=== PATIENT | female | born 1980 | race Caucasian/White ===

== ENCOUNTER 2024-02-24 13:35 | Inpatient (IN) | payer BC ==
[2024-02-24 15:20] LABS: INR 1.07 (0.83-1.09); PROTHROMBIN TIME (PATIENT) 12.2 SEC (9.7-13.0)
[2024-02-24] MEDS ORDERED: METOCLOPRAMIDE HCL INJECTION 10 MG/2 ML VIAL ONE ×2 (15:20→23:57)
[2024-02-24] MEDS ORDERED: ACETAMINOPHEN INJECTION 100 ML IVPB ONE (15:20)
[2024-02-24 15:23] LABS: ACTIVATED PTT 38.8 SECONDS (25.2-36.5)
[2024-02-24 15:24] LABS: HEMATOCRIT 44.6 % (32.4-45.2); HEMOGLOBIN 14.1 G/dL (10.7-15.3); MCH 27.9 pg (25.7-33.7); MCHC 31.5 g/dl (32.0-36.0); MEAN CELL VOLUME 88.4 fl (80-96); MEAN PLT VOLUME 10.3 fl (7.5-11.1); PLATELET COUNT 239.2 10^3/uL (134-434); RBC 5.05 10^6/uL (3.60-5.2); RDW 15.9 % (11.6-15.6); WHITE BLOOD COUNT 20.7 10^3/uL (4.0-10.8)
[2024-02-24 15:29] LABS: ALK PHOS 334 U/L (45-117); ANION GAP 12 mmol/L (4-13); BILIRUBIN,TOTAL 0.6 mg/dl (0.2-1); CALCIUM 9.2 mg/dl (8.5-10.1); CHLORIDE 98 mmol/L (98-107); CO2 23 mmol/L (21-32); CREATININE 0.9 mg/dl (0.6-1.3); GLUCOSE,RANDOM 196 mg/dl (74-106); POTASSIUM 4.1 mmol/L (3.5-5.1); SGOT/AST 74 U/L (15-37); SGPT/ALT 134 U/L (7-52); SODIUM 133 mmol/L (136-145); TOT PROT 6.4 g/dl (6.4-8.2)
[2024-02-24] MEDS: ACETAMINOPHEN 1000 MG/100 ML BAG IVPB ONE (15:31)
[2024-02-24] MEDS: LACTATED RINGERS SOLUTION 1000 ML INFUS.BAG IV ONE (15:31)
[2024-02-24] MEDS: METOCLOPRAMIDE HCL INJECTION 10 MG/2 ML VIAL IVPB ONE (15:31)
[2024-02-24 15:46] LABS: PLATELET ESTIMATE ADEQUATE
[2024-02-24] MEDS ORDERED: ASPIRIN 81 MG CHEWABLE TABLETS ONE (16:46)
[2024-02-24] MEDS: ASPIRIN 81 MG CHEWABLE TABLETS PO ONE (16:54)
[2024-02-24] MEDS ORDERED: PIPERACILLIN/TAZOBACTAM 4.5 GM VIAL IVPB ONE (17:11)
[2024-02-24] MEDS: PIPERACILLIN/TAZOB 4.5 GM 4.5 GM in DEXTROSE 5%-WATER 100 ML IVPB ONE (17:32)
[2024-02-24] MEDS: morphine SULFATE 4 MG/ML VIAL IVPUSH ONE (17:55)
[2024-02-24] MEDS: LACTATED RINGERS SOLUTION 1,000 ML/1,000 ML INFUS.BAG IV STA (18:21)
[2024-02-24] MEDS ORDERED: HYDROmorphone HCL/PF 1 MG/ML VIAL ONE (21:06)
[2024-02-24] MEDS: HYDROmorphone HCl 2 MG/ML VIAL IVPUSH ONE (21:23)
[2024-02-25] MEDS: METOCLOPRAMIDE HCL INJECTION 10 MG/2 ML VIAL IVPB ONE
[2024-02-25] MEDS ORDERED: PIPERACILLIN/TAZOBACTAM 4.5 GM VIAL IVPB ONE (00:39)
[2024-02-25] MEDS: PIPERACILLIN/TAZOB 4.5 GM 4.5 GM in DEXTROSE 5%-WATER 100 ML IVPB ONE (00:46)
[2024-02-25] MEDS ORDERED: METOCLOPRAMIDE HCL INJECTION 10 MG/2 ML VIAL IVPUSH PRN (02:36)
[2024-02-25] MEDS: SODIUM CHLORIDE 1,000 ML IV SCH ×3 (03:00→19:31)
[2024-02-25] MEDS ORDERED: ACETAMINOPHEN 1000 MG/100 ML BAG IVPB PRN (03:03)
[2024-02-25] MEDS ORDERED: morphine CARPU-JECT 2 MG/1 ML DISP.SYRIN IVPUSH PRN (03:03)
[2024-02-25] MEDS: LITHIUM CARBONATE 300 MG CAPSULE PO SCH ×2 (03:12→22:56)
[2024-02-25] MEDS: ONDANSETRON 4 MG/2 ML VIAL IVPUSH ONE ×2 (03:12→14:16)
[2024-02-25] MEDS ORDERED: morphine SULFATE 4 MG/ML VIAL IVPUSH PRN (03:30)
[2024-02-25 03:51] VITALS: BMI 23.0
[2024-02-25] MEDS ORDERED: ACETAMINOPHEN INJECTION 100 ML IVPB ONE ×2 (06:08→14:56)
[2024-02-25] MEDS: ACETAMINOPHEN 1000 MG/100 ML BAG IVPB ONE (06:10)
[2024-02-25] MEDS: LEVOTHYROXINE NA 112 MCG TABLET (FP) PO SCH (07:10)
[2024-02-25 07:52] LABS: INR 1.18 (0.83-1.09); PROTHROMBIN TIME (PATIENT) 13.3 SEC (9.7-13.0)
[2024-02-25 07:55] LABS: ACTIVATED PTT 32.9 SECONDS (25.2-36.5)
[2024-02-25 08:08] LABS: POTASSIUM 4.3 mmol/L (3.5-5.1)
[2024-02-25 08:12] LABS: CALCIUM 8.4 mg/dL (8.5-10.1)
[2024-02-25 08:13] LABS: ALBUMIN 2.7 g/dl (3.4-5.0); BLOOD UREA NITROGEN 9.1 mg/dL (7-18)
[2024-02-25 08:16] LABS: CREATININE 0.6 mg/dL (0.55-1.3); PHOSPHOROUS 3.2 mg/dL (2.5-4.9)
[2024-02-25 08:17] LABS: TOT PROT 5.4 g/dl (6.4-8.2)
[2024-02-25 08:18] LABS: BILIRUBIN,TOTAL 0.5 mg/dL (0.2-1)
[2024-02-25 08:19] LABS: HEMATOCRIT 37.7 % (32.4-45.2); HEMOGLOBIN 12.4 GM/dL (10.7-15.3); MCH 28.1 pg (25.7-33.7); MCHC 32.8 g/dl (32.0-36.0); MEAN CELL VOLUME 85.6 fl (80-96); MEAN PLT VOLUME 10.4 fl (7.5-11.1); PLATELET COUNT 251 10^3/uL (134-434); RBC 4.41 M/mm3 (3.60-5.2); RDW 15.8 % (11.6-15.6); WHITE BLOOD COUNT 20.9 K/mm3 (4.0-10.0)
[2024-02-25 09:33] LABS: ANISOCYTOSIS 0; MACROCYTOSIS 0
[2024-02-25] MEDS ORDERED: ASENAPINE 5 MG TAB SL SCH (10:00)
[2024-02-25] MEDS ORDERED: PIPERACILLIN/TAZOB 3.375 GM 3.375 GM in DEXTROSE 5%-WATER - 50 ML IVPB SCH ×5 (10:00→20:00)
[2024-02-25] MEDS: QUEtiapine FUMARATE 25 MG TABLET PO ONE ×2 (10:44→23:40)
[2024-02-25] MEDS: LIOTHYRONINE SODIUM 5 MCG TABLET PO SCH (11:07)
[2024-02-25] MEDS: HYDROmorphone HCl 2 MG/ML VIAL IVPUSH PRN (11:08)
[2024-02-25] MEDS: PIPERACILLIN/TAZOB 3.375 GM 3.375 GM in DEXTROSE 5%-WATER - 50 ML IVPB SCH ×3 (11:11→19:32)
[2024-02-25] MEDS: SERTRALINE HCL 50 MG TABLET (FP) PO SCH (11:12)
[2024-02-25] MEDS ORDERED: HEPARIN NA (PORCINE) 5,000 UNITS/ML 1ML VIAL ONE (11:27)
[2024-02-25] MEDS ORDERED: BUPIVACAINE HCL/PF 0.25% (2.5MG/ML) 10 ML VIAL ONE (11:27)
[2024-02-25] MEDS ORDERED: FENTANYL CITRATE/PF 50 MCG/ML VIAL ONE ×4 (11:39→14:53)
[2024-02-25] MEDS ORDERED: SUCCINYLCHOLINE CHLORIDE 200 MG/10 ML SYRINGE ONE (11:40)
[2024-02-25] MEDS ORDERED: MIDAZOLAM HCL 2 MG/2 ML SINGLE DOSE VIAL ONE (11:40)
[2024-02-25] MEDS ORDERED: PROPOFOL 20 ML ONE (11:40)
[2024-02-25] MEDS ORDERED: cefOXitin SODIUM 2 GM VIAL (RESTRICTED TO ID) IVPB ONE (11:56)
[2024-02-25] MEDS: BUPIVACAINE HCL/PF 2.5 MG/ML - 30 ML VIAL IJ ONE ×2 (12:36)
[2024-02-25] MEDS ORDERED: ROCURONIUM BROMIDE 50 MG/5 ML SYRINGE ONE (12:40)
[2024-02-25] MEDS ORDERED: NEOSTIGMINE METHYLSULFATE 0.5 MG/1 ML - 10 ML MDV ONE (13:40)
[2024-02-25] MEDS ORDERED: GLYCOPYRROLATE 0.2 MG/1 ML VIAL ONE (13:40)
[2024-02-25] MEDS ORDERED: ONDANSETRON 4 MG/2 ML VIAL ONE (14:16)
[2024-02-25] MEDS ORDERED: KETOROLAC TROMETHAMINE 30 MG/1 ML VIAL ONE (14:33)
[2024-02-25] MEDS: KETOROLAC TROMETHAMINE 30 MG/1 ML VIAL IVPUSH PRN (14:35)
[2024-02-25] MEDS: ACETAMINOPHEN 1000 MG/100 ML BAG IVPB SCH (15:00)
[2024-02-25] MEDS ORDERED: ACETAMINOPHEN 1000 MG/100 ML BAG IVPB SCH (15:30)
[2024-02-25 16:08] LABS: POTASSIUM 4.3 mmol/L (3.5-5.1)
[2024-02-25 16:10] LABS: BLOOD UREA NITROGEN 9.4 mg/dL (7-18); CALCIUM 8.3 mg/dL (8.5-10.1)
[2024-02-25 16:13] LABS: CREATININE 0.6 mg/dL (0.55-1.3)
[2024-02-25] MEDS: oxyCODONE HCL 5 MG TABLET PO PRN (16:27)
[2024-02-25] MEDS ORDERED: TRIMETHOBENZAMIDE HCL 200MG/2ML INJ IM PRN (17:02)
[2024-02-25 18:32] LABS: EPI CELLS >36 /uL (0-25.1); HYALINE CASTS 9 /uL (0-3.1); URINE APPEARANCE CLOUDY; URINE BACTERIA 659 /uL (0-1359); URINE BILIRUBIN NEGATIVE (NEGATIVE); URINE COLOR DK YELLOW; URINE GLUCOSE (UA) 2+ (NEGATIVE); URINE KETONE 3+ (NEGATIVE); URINE LEUK ESTERASE NEGATIVE (NEGATIVE); URINE NITRITE NEGATIVE (NEGATIVE); URINE PROTEIN 2+ (NEGATIVE)
[2024-02-25] MEDS: BENZOCAINE/MENTH/CETYLPYRD CL 1 EACH LOZENGE MM ONE (18:46)
[2024-02-25] MEDS: BENZOCAINE/MENTHOL (CHLORASEPTIC ) LOZENGE MM ONE (18:48)
[2024-02-25 19:11] LABS: URINE RBC 43.6 /uL (0-23.9); URINE WBC 414.4 /uL (0-25.8); YEAST PRESENT (NEGATIVE)
[2024-02-25] MEDS: ASENAPINE 5 MG TAB SL SCH (19:32)
[2024-02-25] MEDS: LACTATED RINGERS SOLUTION 1,000 ML IV SCH (19:32)
[2024-02-25] MEDS: QUEtiapine FUMARATE 25 MG TABLET PO SCH (21:22)
[2024-02-25] MEDS ORDERED: QUEtiapine FUMARATE 25 MG TABLET PO SCH ×2 (22:00)
[2024-02-25] MEDS ORDERED: LITHIUM CARBONATE 300 MG CAPSULE PO SCH (22:00)
[2024-02-26] MEDS: LEVOTHYROXINE NA 112 MCG TABLET (FP) PO SCH (06:59)
[2024-02-26] MEDS ORDERED: LEVOTHYROXINE NA 112 MCG TABLET (FP) PO SCH (07:00)
[2024-02-26 09:46] LABS: HEMATOCRIT 39.1 % (32.4-45.2); HEMOGLOBIN 12.5 GM/dL (10.7-15.3); MCH 27.8 pg (25.7-33.7); MEAN PLT VOLUME 9.7 fl (7.5-11.1); PLATELET COUNT 317 10^3/uL (134-434); RBC 4.49 M/mm3 (3.60-5.2); RDW 15.7 % (11.6-15.6); WHITE BLOOD COUNT 22.1 K/mm3 (4.0-10.0)
[2024-02-26] MEDS: SERTRALINE HCL 50 MG TABLET (FP) PO SCH (09:57)
[2024-02-26] MEDS: LIOTHYRONINE SODIUM 5 MCG TABLET PO SCH (09:57)
[2024-02-26] MEDS: SIMETHICONE 80 MG TAB.CHEW (FP) PO PRN (09:57)
[2024-02-26] MEDS ORDERED: LIOTHYRONINE SODIUM 5 MCG TABLET PO SCH (10:00)
[2024-02-26] MEDS ORDERED: SERTRALINE HCL 50 MG TABLET (FP) PO SCH (10:00)
[2024-02-26] MEDS: ACETAMINOPHEN 500 MG TABLET (FP) PO SCH ×2 (10:00→21:12)
[2024-02-26] MEDS ORDERED: ASENAPINE 5 MG TAB SL SCH (10:00)
[2024-02-26 10:26] LABS: POTASSIUM 4.6 mmol/L (3.5-5.1)
[2024-02-26 10:28] LABS: CALCIUM 8.3 mg/dL (8.5-10.1)
[2024-02-26 10:32] LABS: CREATININE 0.7 mg/dL (0.55-1.3); PHOSPHOROUS 2.4 mg/dL (2.5-4.9)
[2024-02-26 10:55] LABS: ANISOCYTOSIS 1+; MACROCYTOSIS 0
[2024-02-26] MEDS ORDERED: ACETAMINOPHEN 500 MG TABLET (FP) PO PRN (12:16)
[2024-02-26] MEDS: ASENAPINE 5 MG TAB SL SCH (14:16)
[2024-02-26] MEDS: MAG HYDROX/AL HYDROX/SIMETH 30 ML UNIT-DOSE CUP PO ONE (17:46)
[2024-02-26] MEDS ORDERED: TRIMETHOBENZAMIDE HCL 200MG/2ML INJ IM PRN (21:00)
[2024-02-26] MEDS: LITHIUM CARBONATE 300 MG CAPSULE PO SCH (21:09)
[2024-02-26] MEDS: QUEtiapine FUMARATE 25 MG TABLET PO SCH (21:09)
[2024-02-27] MEDS: ALBUTEROL SO4 0.083% IH SOL 2.5 MG/3 ML VIAL.NEB. NEB ONE (03:57)
[2024-02-27 08:01] LABS: HEMATOCRIT 40.8 % (32.4-45.2); MCH 27.7 pg (25.7-33.7); MCHC 31.9 g/dl (32.0-36.0); MEAN CELL VOLUME 86.7 fl (80-96); PLATELET COUNT 436 10^3/uL (134-434); RBC 4.71 M/mm3 (3.60-5.2); RDW 15.9 % (11.6-15.6); WHITE BLOOD COUNT 23.9 K/mm3 (4.0-10.0)
[2024-02-27 08:19] LABS: POTASSIUM 4.1 mmol/L (3.5-5.1)
[2024-02-27 08:26] LABS: ALBUMIN 2.6 g/dl (3.4-5.0); BLOOD UREA NITROGEN 5.1 mg/dL (7-18); CALCIUM 8.5 mg/dL (8.5-10.1); MAGNESIUM 2.2 mg/dL (1.8-2.4)
[2024-02-27 08:28] LABS: CREATININE 0.7 mg/dL (0.55-1.3)
[2024-02-27 08:30] LABS: TOT PROT 5.7 g/dl (6.4-8.2)
[2024-02-27 08:32] LABS: BILIRUBIN,TOTAL 0.8 mg/dL (0.2-1)
[2024-02-27] MEDS: LEVOTHYROXINE NA 112 MCG TABLET (FP) PO SCH (08:59)
[2024-02-27] MEDS: ASENAPINE 5 MG SL SCH (09:00)
[2024-02-27] MEDS: LIOTHYRONINE SODIUM 5 MCG TABLET PO SCH (09:02)
[2024-02-27 09:45] LABS: ANISOCYTOSIS 0; MACROCYTOSIS 0
[2024-02-27] MEDS ORDERED: CASPOFUNGIN ACETATE 70 MG in SODIUM CHLORIDE 250 ML IVPB ONE (12:15)
[2024-02-27] MEDS: FUROSEMIDE 40 MG/4 ML INJECTABLE VIAL IVPUSH ONE (13:10)
[2024-02-27 14:29] LABS: EPI CELLS >36 /uL (0-25.1); HYALINE CASTS 0 /uL (0-3.1); PH,URINE 7.5 (5.0-8.0); URINE APPEARANCE Error; URINE BACTERIA 8 /uL (0-1359); URINE BILIRUBIN NEGATIVE (NEGATIVE); URINE COLOR YELLOW; URINE GLUCOSE (UA) NEGATIVE (NEGATIVE); URINE KETONE 1+ (NEGATIVE); URINE LEUK ESTERASE 2+ (NEGATIVE); URINE NITRITE NEGATIVE (NEGATIVE); URINE PROTEIN NEGATIVE (NEGATIVE); URINE RBC 15 /uL (0-23.9); URINE UROBILINOGEN 0.2 mg/dL (0.2-1.0); URINE WBC 115 /uL (0-25.8)
[2024-02-27 15:48] LABS: METHADONE, UR NEGATIVE (NEGATIVE)
[2024-02-27 15:53] LABS: OPIATES, URI NEGATIVE (NEGATIVE); PHENCYCLIDINE,URINE NEGATIVE (NEGATIVE); URINE BARBITURATES NEGATIVE (NEGATIVE)
[2024-02-27 15:56] LABS: COCAINE, UR NEGATIVE (NEGATIVE); URINE AMPHETAMINES NEGATIVE (NEGATIVE); URINE BENZODIAZEPINES POSITIVE (NEGATIVE)
[2024-02-27] MEDS: ALPRAZolam 1 MG TABLET PO PRN (16:50)
[2024-02-27] MEDS: CASPOFUNGIN ACETATE 70 MG in SODIUM CHLORIDE 250 ML IVPB ONE ×2 (17:30→18:20)
[2024-02-27] MEDS: ASENAPINE 5 MG TAB SL SCH (21:41)
[2024-02-28 07:22] LABS: HEMATOCRIT 38.5 % (32.4-45.2); HEMOGLOBIN 12.3 GM/dL (10.7-15.3); MCHC 32.1 g/dl (32.0-36.0); MEAN CELL VOLUME 87.2 fl (80-96); MEAN PLT VOLUME 9.4 fl (7.5-11.1); PLATELET COUNT 378 10^3/uL (134-434); RBC 4.41 M/mm3 (3.60-5.2); RDW 16.3 % (11.6-15.6); WHITE BLOOD COUNT 19.2 K/mm3 (4.0-10.0)
[2024-02-28 07:36] LABS: POTASSIUM 4.3 mmol/L (3.5-5.1)
[2024-02-28 07:39] LABS: CALCIUM 8.6 mg/dL (8.5-10.1)
[2024-02-28 07:40] LABS: ALBUMIN 2.5 g/dl (3.4-5.0); BLOOD UREA NITROGEN 8.1 mg/dL (7-18); MAGNESIUM 2.1 mg/dL (1.8-2.4)
[2024-02-28 07:43] LABS: CREATININE 0.8 mg/dL (0.55-1.3)
[2024-02-28] MEDS ORDERED: oxyCODONE HCL 5 MG TABLET PO PRN (07:43)
[2024-02-28 07:45] LABS: BILIRUBIN,TOTAL 0.6 mg/dL (0.2-1); TOT PROT 5.3 g/dl (6.4-8.2)
[2024-02-28] MEDS: PIPERACILLIN/TAZOB 3.375 GM 3.375 GM in DEXTROSE 5%-WATER - 50 ML IVPB SCH (09:36)
[2024-02-28] MEDS: ENOXAPARIN NA (PORCINE) 40 MG/0.4 ML DISP.SYRIN SQ SCH (09:36)
[2024-02-28] MEDS: SERTRALINE HCL 50 MG TABLET (FP) PO SCH (09:37)
[2024-02-28] MEDS: LIOTHYRONINE SODIUM 5 MCG TABLET PO SCH (09:37)
[2024-02-28] MEDS: LEVOTHYROXINE NA 112 MCG TABLET (FP) PO SCH (09:42)
[2024-02-28 09:46] LABS: ANISOCYTOSIS 0; HELMET CELLS 0; HOWELL-JOLLY BODIES 0; MACROCYTOSIS 0; OVALOCYTE 0; ROULEAU 0; SICKELED CELLS 0; TARGET CELLS 0; TEAR DROP CELLS 0; TOXIC GRANULATION 0
[2024-02-28] MEDS: SIMETHICONE 80 MG TAB.CHEW (FP) PO PRN (10:11)
[2024-02-28] MEDS: ALBUTEROL SO4 2.5/IPRATROPIUM 0.5 INH SOL 3 ML VIAL.NEB. NEB PRN (11:29)
[2024-02-28] MEDS: TRIMETHOBENZAMIDE HCL 200MG/2ML INJ IM PRN (13:09)
[2024-02-28] MEDS: ALPRAZolam 1 MG TABLET PO PRN (13:26)
[2024-02-28] MEDS: POLYETHYLENE GLYCOL (HEALTHYLAX) 3350 17 GM PACKET PO ONE (13:26)
[2024-02-28] MEDS: INSULIN PUMP - PATIENTS OWN MED NR SCH ×2 (13:26→19:29)
[2024-02-28] MEDS: FUROSEMIDE 40 MG/4 ML INJECTABLE VIAL IVPUSH ONE (13:26)
[2024-02-28] MEDS: INSULIN (NOVOLOG) ASPART 100 UNITS/ML 10ML VIAL SQ ONE (14:54)
[2024-02-28] MEDS: PIPERACILLIN/TAZOB 4.5 GM 4.5 GM in DEXTROSE 5%-WATER 100 ML IVPB SCH (17:54)
[2024-02-28] MEDS: AMINO ACIDS 4.25%/D5W 1,000 ML IV SCH (19:29)
[2024-02-28] MEDS: QUEtiapine FUMARATE 25 MG TABLET PO SCH (20:12)
[2024-02-28] MEDS: LITHIUM CARBONATE 300 MG CAPSULE PO SCH (20:12)
[2024-02-28] MEDS: ASENAPINE 5 MG TAB SL SCH (20:13)
[2024-02-28] MEDS: KETOROLAC TROMETHAMINE 30 MG/1 ML VIAL IVPUSH PRN (21:22)
[2024-02-28] MEDS: QUEtiapine FUMARATE 25 MG TABLET PO ONE (21:22)
[2024-02-29 07:17] LABS: HEMATOCRIT 34.6 % (32.4-45.2); HEMOGLOBIN 11.4 GM/dL (10.7-15.3); MCH 28.5 pg (25.7-33.7); MEAN CELL VOLUME 86.5 fl (80-96); MEAN PLT VOLUME 8.4 fl (7.5-11.1); PLATELET COUNT 517 10^3/uL (134-434); RDW 15.4 % (11.6-15.6)
[2024-02-29 07:25] LABS: WHITE BLOOD COUNT 30.7 K/mm3 (4.0-10.0)
[2024-02-29 07:32] LABS: POTASSIUM 3.7 mmol/L (3.5-5.1)
[2024-02-29 07:43] LABS: ALBUMIN 2.8 g/dl (3.4-5.0); BLOOD UREA NITROGEN 14.2 mg/dL (7-18); MAGNESIUM 2.2 mg/dL (1.8-2.4)
[2024-02-29 07:47] LABS: BILIRUBIN,TOTAL 0.5 mg/dL (0.2-1); CREATININE 0.9 mg/dL (0.55-1.3)
[2024-02-29 07:49] LABS: TOT PROT 5.8 g/dl (6.4-8.2)
[2024-02-29 08:52] LABS: HEMATOCRIT 34.2 % (32.4-45.2); HEMOGLOBIN 11.2 GM/dL (10.7-15.3); MCH 28.1 pg (25.7-33.7); MCHC 32.6 g/dl (32.0-36.0); MEAN CELL VOLUME 86.1 fl (80-96); MEAN PLT VOLUME 8.4 fl (7.5-11.1); PLATELET COUNT 473 10^3/uL (134-434); RBC 3.97 M/mm3 (3.60-5.2); WHITE BLOOD COUNT 29.1 K/mm3 (4.0-10.0)
[2024-02-29 09:17] LABS: ANISOCYTOSIS 2+; MACROCYTOSIS 0
[2024-02-29 09:54] LABS: ANISOCYTOSIS 2+; MACROCYTOSIS 0
[2024-02-29] MEDS: FUROSEMIDE 40 MG/4 ML INJECTABLE VIAL IVPUSH ONE (10:21)
[2024-02-29] MEDS ORDERED: SODIUM CHLORIDE 1,000 ML IV SCH (14:00)
[2024-02-29] MEDS ORDERED: IBUPROFEN 200 MG TABLET PO PRN (14:20)
[2024-02-29] MEDS ORDERED: IBUPROFEN 400 MG TABLET (FP) PO PRN (14:25)
[2024-02-29] MEDS: IBUPROFEN 400 MG TABLET (FP) PO ONE (14:32)
[2024-02-29] MEDS: QUEtiapine FUMARATE 50 MG TABLET PO SCH (21:15)
[2024-03-01] MEDS: IBUPROFEN 400 MG TABLET (FP) PO ONE (03:15)
[2024-03-01 06:34] VITALS: RESP 20
[2024-03-01 07:36] LABS: HEMATOCRIT 34.2 % (32.4-45.2); MCH 27.6 pg (25.7-33.7); MCHC 32.2 g/dl (32.0-36.0); MEAN CELL VOLUME 85.7 fl (80-96); MEAN PLT VOLUME 8.6 fl (7.5-11.1); PLATELET COUNT 406 10^3/uL (134-434); RBC 3.99 M/mm3 (3.60-5.2); RDW 16.3 % (11.6-15.6); WHITE BLOOD COUNT 19.1 K/mm3 (4.0-10.0)
[2024-03-01 07:51] LABS: POTASSIUM 3.7 mmol/L (3.5-5.1)
[2024-03-01 07:52] LABS: CALCIUM 8.5 mg/dL (8.5-10.1)
[2024-03-01 07:53] LABS: BLOOD UREA NITROGEN 9.3 mg/dL (7-18)
[2024-03-01 07:56] LABS: CREATININE 0.7 mg/dL (0.55-1.3)
[2024-03-01] MEDS ORDERED: DEXTROSE 50%-WATER 25 GM/50 ML DISP.SYRIN IVPUSH PRN (08:00)
[2024-03-01] MEDS: INSULIN REGULAR 100 UNITS in SODIUM CHLORIDE 99 ML IVPB SCH (09:31)
[2024-03-01] MEDS ORDERED: MUPIROCIN 2% TOPICAL OINTMENT FOR DECOLONIZATION NS SCH (11:00)
[2024-03-01 11:05] LABS: ANISOCYTOSIS 2+; MACROCYTOSIS 0
[2024-03-01] MEDS ORDERED: INSULIN ASPART SLIDING SCALE (NOVOLOG) 1 VIAL SQ ONE ×2 (11:37→18:12)
[2024-03-01] MEDS: INSULIN (NOVOLOG) ASPART 100 UNITS/ML 10ML VIAL SQ ONE (11:51)
[2024-03-01] MEDS: DEXTROSE 5%-0.45% SALINE 1,000 ML IV SCH (11:53)
[2024-03-01] MEDS: INSULIN REGULAR HUMAN 100 UNITS/ML *VIAL SQ ONE (11:54)
[2024-03-01] MEDS: INSULIN (NOVOLOG MIX 70/30) 100 UNITS/ML MDV SQ ONE (11:54)
[2024-03-01] MEDS: SODIUM CHLORIDE 0.45% 1,000 ML IV SCH (12:06)
[2024-03-01] MEDS ORDERED: INSULIN ASPART SLIDING SCALE (NOVOLOG) 1 VIAL SQ SCH ×2 (16:30)
[2024-03-01 17:48] VITALS: BP 120/85; PULSE 78; TEMP 98.5
[2024-03-01] MEDS ORDERED: CHLORHEXIDINE GLUCONATE 4% CLEANSER FOR DECOLONIZATION TP SCH (22:00)
[2024-03-02] MEDS ORDERED: FAMOTIDINE 20 MG/50 ML IVPB 20 MG/50 ML MG IVPB SCH (10:00)
== END 2024-03-01 17:40 | disposition left against medical advice (07) | DRG 417 ==
LOC: FER 13:35 → INTOOBSV 02-25 01:57 → UNDOADMOB 02-25 01:57 → JERBED 02-25 01:57 → J4W 02-25 01:58 → JERBED 02-25 01:58 → J4W 02-25 03:00 → UNDOADMOB 02-25 03:00 → JASUSAT 02-25 14:17 → SUATTDRO 02-25 14:17 → JASUSAT 02-25 14:26 → J8W 02-25 14:27 → J2W 02-27 18:03
PROVIDERS: ADMIT Internal Medicine; ATTEND Internal Medicine Pulmonary Disease
PROC: 0FT44ZZ Resection of Gallbladder, Percutaneous Endoscopic Approach (ICD-10-PCS; principal; 2024-02-25 12:00)
DX: K81.0 Acute cholecystitis (principal); J18.9 Pneumonia, unspecified organism; I31.39 Other pericardial effusion (noninflammatory); J90 Pleural effusion, not elsewhere classified; F31.9 Bipolar disorder, unspecified; E03.9 Hypothyroidism, unspecified; F41.9 Anxiety disorder, unspecified; E10.9 Type 1 diabetes mellitus without complications
CPT/HCPCS: 36415; 70450-TC; 71045-TC-FY; 71046-TC-FY; 71275-TC; 74177-TC; 74181-TC; 76705-TC; 80048; 80053; 80061; 80178; 80307; 81003; 82010; 82962; 82977; 83036; 83690; 83735; 84075; 84100; 84439; 84443; 84450; 84460; 84484; 84703; 85025; 85027; 85379; 85610; 85730; 86140; 86705; 86707; 86708; 86850; 86900; 86901; 87040; 87077; 87081; 87086; 87350; 87517; 87522; 88304-TC; 93005; 93010; 93306-TC; 94010; 94640; 94760; 99285-25; J0131; J1644; Q9967

== ENCOUNTER 2024-03-21 10:17 | Emergency (ER) | payer BC ==
[2024-03-21 10:27] VITALS: BP 152/84; PULSE 77; RESP 18; BMI 22.3
[2024-03-21] MEDS ORDERED: ACETAMINOPHEN 1000 MG/100 ML BAG IVPB ONE (10:53)
[2024-03-21 11:19] VITALS: TEMP 98.3
[2024-03-21 11:37] LABS: HEMATOCRIT 42.6 % (32.4-45.2); HEMOGLOBIN 13.4 G/dL (10.7-15.3); MCH 27.6 pg (25.7-33.7); MCHC 31.3 g/dl (32.0-36.0); MEAN CELL VOLUME 88.2 fl (80-96); MEAN PLT VOLUME 9.9 fl (7.5-11.1); PLATELET COUNT 244.1 10^3/uL (134-434); RBC 4.83 10^6/uL (3.60-5.2); RDW 16.5 % (11.6-15.6); WHITE BLOOD COUNT 8.5 10^3/uL (4.0-10.8)
[2024-03-21 11:52] LABS: ALBUMIN 4.8 g/dl (3.4-5.0); ALK PHOS 154 U/L (45-117); ANION GAP 8 mmol/L (4-13); BILIRUBIN,TOTAL 0.5 mg/dl (0.2-1); CHLORIDE 105 mmol/L (98-107); CO2 23 mmol/L (21-32); CREATININE 0.9 mg/dl (0.6-1.3); GLUCOSE,RANDOM 135 mg/dl (74-106); POTASSIUM 4.5 mmol/L (3.5-5.1); SGOT/AST 21 U/L (15-37); SGPT/ALT 28 U/L (7-52); SODIUM 136 mmol/L (136-145); TOT PROT 7.2 g/dl (6.4-8.2)
[2024-03-21 12:52] LABS: ANISOCYTOSIS 1+; PLATELET ESTIMATE ADEQUATE
== END 2024-03-21 12:30 | disposition home or self-care (01) ==
LOC: FER 10:17
DX: R07.89 Other chest pain (principal); R05.9 Cough, unspecified; J40 Bronchitis, not specified as acute or chronic; R09.81 Nasal congestion; Z20.822 Contact with and (suspected) exposure to COVID-19
CPT/HCPCS: 0241U-QW; 36415; 71046-TC-FY; 80053; 84484; 85027; 93005; 99285-25